=== PATIENT | male | born 1985 | race Caucasian/White ===

== ENCOUNTER 2021-08-07 12:11 | Emergency (ER) | payer OTHER, SELFPAY ==
[2021-08-07 13:05] LABS: Glucose Point of Care 324 mg/dl (65-105)
--- NOTE | 2021-08-07 13:14 | ED.URI ---
HPI - URI/Sore Throat General Chief Complaint: Upper Respiratory Infection Stated Complaint: couh,chest congestion, high blood sugar Time Seen by Provider: 08/07/21 13:14 Source: patient and family Mode of arrival: ambulatory Limitations: no limitations History of Present Illness HPI Narrative: 36-year-old man with a history of type 1 diabetes comes in today complaining of 1 week of nasal congestion, purulent nasal drainage, sinus pressure and cough. She denies fever, shortness of breath, vomiting, sick exposures, chest pain, ageusia and chest pain. Patient states he is also out of his long-acting insulin and a few of his other medications. He states that because he is out of his medications his blood sugars been high. He has not had the COVID vaccine. MD elicited complaint: cough, rhinorrhea, nasal congestion and sinus pain Pertinent past history: asthma Onset (ago): week(s) (1) Consistency: constant Severity: moderate Description of mucous: yellow ( Now) Exacerbating factors: nothing Relieving factors: nothing Associated symptoms: rhinorrhea, nasal congestion and cough Related Data Home Medications Medication Instructions Recorded Confirmed bupropion HCl [Wellbutrin XL] 300 mg PO BID 08/07/21 08/07/21 dicyclomine [Bentyl] 20 mg PO QID 08/07/21 08/07/21 insulin glargine U-300 conc 20 unit SUBCUT DAILY 08/07/21 08/07/21 [Toujeo SoloStar U-300 Insulin] Allergies Allergy/AdvReac Type Severity Reaction Status Date / Time ibuprofen Allergy Severe Swelling Verified 08/07/21 13:27 Review of Systems Review of Systems: All systems reviewed & are unremarkable except as noted in HPI and below Constitutional: Constitutional: Denies chills and Denies fever(s) ENT: Reports nasal congestion and Denies sore throat Cardiovascular: Cardiovascular: Denies chest pain and Denies radiating jaw, neck or arm pain Respiratory: Respiratory: Reports cough, Denies dyspnea and Denies wheezing Gastrointestinal: Gastrointestinal: Denies abdominal pain, Denies nausea and Denies vomiting Musculoskeletal: Musculoskeletal: Denies arthralgias and Denies joint swelling Integumentary/Breasts: Skin/Breast: Denies pruritus, Denies erythema and Denies rash Neurologic: Denies vertigo, Denies dizziness, Denies syncope and Denies weakness Allergic/Immunologic: Allergic/Immunologic: Denies lip swelling and Denies throat swelling [facility] Past Medical History Medical History (Updated 08/07/21 @ 13:27 by Keny Mcpherson MD) Type 1 diabetes mellitus Surgical History Surgical History (Updated 08/07/21 @ 13:23 by Keny Mcpherson MD) H/O splenectomy History of abdominal surgery liposarcoma Social History Social History (Updated 08/07/21 @ 13:24 by Keny Mcpherson MD) Smoking status: Current every day smoker Alcohol intake: never Substance use: current Substance use type: marijuana Living arrangements: with family Exam Const: General: healthy appearing, no acute distress and alert Orientation/consciousness: patient oriented x3 Limitations: no limitations HENMT: Head: normal to inspection Ears: external ears normal, TM's normal bilaterally and EAC's normal General nose exam: Normal nares present Face and sinus: normal facial exam Mouth: Yes moist mucous membranes Throat: posterior oropharynx normal Eyes: Conjunctivae: conjunctivae normal Pupils: Equal, round and reactive pupils present EOM: EOMs intact bilaterally Resp: Effort & Inspection: normal respiratory effort and not labored Auscultation: clear to auscultation bilaterally, no rales, no rhonchi and no wheezes Cardio: Rate: regular rate Rhythm: regular rhythm Skin: General skin exam: normal color, no jaundice and no pallor Rashes: no rashes Neuro: General: patient oriented x3, moves all extremities, no focal motor deficits and CN's II-XI intact bilaterally Speech: normal speech Extrem: General: normal to inspection and no clubbing, cyanosis or
[2021-08-07 13:25] VITALS: BP 148/107; PULSE 78; RESP 20; TEMP 36.6; O2SAT 97
[2021-08-07 13:59] LABS: Influenza A QL RT-PCR Negative (Negative); Influenza B QL RT-PCR Negative (Negative); SARS-CoV-2 RNA PCR Negative (Negative)
[2021-08-07 14:14] VITALS: PULSE 80; RESP 20; O2SAT 98
== END 2021-08-07 14:18 | disposition home or self-care (01) ==
PROVIDERS: Emergency Provider Emergency Medicine
DX: J01.90 Acute sinusitis, unspecified (principal); E10.9 Type 1 diabetes mellitus without complications; Z20.822 Contact with and (suspected) exposure to COVID-19; F17.200 Nicotine dependence, unspecified, uncomplicated
CPT/HCPCS: 82948; 87502; 99283; C9803; U0003; U0005

== ENCOUNTER 2021-09-12 10:59 | Outpatient (CLI) | payer OTHER, SELFPAY ==
[2021-09-12 11:32] LABS: Basophils Absolute Auto 0.17 K/mm3 (0.00-0.10); Basophils Percent Auto 1.3 % (0.0-1.0); Hematocrit 48.2 % (40.0-54.0); Hemoglobin 16.1 g/dL (14.0-18.0); Immature Granulocyte Absolute 0.06 K/mm3 (0.00-0.00); Immature Granulocyte Percent A 0.4 % (0.0-0.0); Lymphocytes Absolute Auto 2.97 K/mm3 (1.10-4.50); Lymphocytes Percent Auto 22.1 % (18.0-42.0); Mean Corpuscular HGB Conc 33.4 g/dL (32.0-36.0); Mean Corpuscular Volume 89.8 fL (78.0-102.0); Mean Platelet Volume 10.8 fl (8.7-11.0); Monocytes Absolute Auto 0.96 K/mm3 (0.10-0.90); Monocytes Percent Auto 7.2 % (2.0-11.0); Neutrophils Absolute Auto 8.5 K/mm3 (1.7-7.2); Platelet Count Result 458 K/mm3 (150-420); Red Blood Count 5.37 M/mm3 (4.70-6.10); Red Cell Distribution Width 12.3 % (11.6-14.4); White Blood Count 13.4 K/mm3 (4.8-10.8)
[2021-09-12 11:44] LABS: Hemoglobin A1C 10.9 % (<5.7)
[2021-09-12 12:49] LABS: Alanine Aminotransferase 26 U/L (16-63); Albumin Level 3.7 g/dL (3.4-5.0); Alkaline Phosphatase 119 U/L (46-116); Anion Gap 12 mmol/L (8-16); Aspartate Amino Transferase 14 U/L (15-37); Bilirubin,Total 0.3 mg/dL (0.00-1.00); Blood Urea Nitrogen 14 mg/dL (7-18); Carbon Dioxide 25 mmol/L (21-32); Chloride 99 mmol/L (98-108); Cholesterol 306 mg/dL (0-200); Estimated Glomerular Filt Rate > 60; Glucose 228 mg/dL (70-99); HDL Direct 31 mg/dL (40-60); Osmolality Calculated 289 mOsm/kg (285-295); Sodium 136 mmol/L (136-145); Total Protein 7.2 g/dL (6.4-8.2)
[2021-09-12 12:51] LABS: LDL Cholesterol Calculated 174 mg/dL (<130); LDL Cholesterol Direct 158 mg/dL (0-130); Triglycerides 506 mg/dL (0-150)
== END 2021-09-12 11:00 | disposition home or self-care (01) ==
LOC: CHSLAB 11:02
PROVIDERS: PCP Nurse Practitioner Family; Visit Provider Nurse Practitioner Family
DX: E10.9 Type 1 diabetes mellitus without complications (principal); Z00.00 Encounter for general adult medical examination without abnormal findings; I10 Essential (primary) hypertension
CPT/HCPCS: 36415; 80053; 80061; 83036; 83721; 85025

== ENCOUNTER 2022-01-03 16:26 | Outpatient (CLI) | payer OTHER, SELFPAY ==
[2022-01-03 16:48] LABS: Hemoglobin A1C 10.1 % (<5.7)
[2022-01-03 17:12] LABS: Alanine Aminotransferase 29 U/L (16-63); Albumin Level 3.7 g/dL (3.4-5.0); Alkaline Phosphatase 110 U/L (46-116); Anion Gap 9 mmol/L (8-16); Aspartate Amino Transferase 18 U/L (15-37); Bilirubin,Total 0.2 mg/dL (0.00-1.00); Blood Urea Nitrogen 13 mg/dL (7-18); Calcium 9.2 mg/dL (8.5-10.1); Carbon Dioxide 28 mmol/L (21-32); Chloride 98 mmol/L (98-108); Estimated Glomerular Filt Rate > 60; Glucose 201 mg/dL (70-99); Osmolality Calculated 286 mOsm/kg (285-295); Potassium 4.8 mmol/L (3.5-5.1); Sodium 135 mmol/L (136-145); Total Protein 7.4 g/dL (6.4-8.2)
== END 2022-01-03 16:27 | disposition home or self-care (01) ==
LOC: CHSLAB 16:28
PROVIDERS: PCP Family Medicine; Visit Provider Nurse Practitioner Family
DX: E10.9 Type 1 diabetes mellitus without complications (principal)
CPT/HCPCS: 36415; 80053; 83036